=== PATIENT | male | born 2000 | race Caucasian/White ===

== ENCOUNTER 2020-05-27 13:24 | Emergency (ER) | payer BC ==
[2020-05-27] MEDS ORDERED: DIPHTH,PERTUSS(ACELL),TET 0.5 ML DISP.SYRIN IM ONE ×2 (13:44→14:13)
[2020-05-27 13:56] VITALS: BP 131/87; PULSE 94; TEMP 98.8; BMI 21.5
== END 2020-05-27 14:33 | disposition home or self-care (01) ==
LOC: FER 13:24
PROC: 3E0234Z Introduction of Serum, Toxoid and Vaccine into Muscle, Percutaneous Approach (ICD-10-PCS; principal; 2020-05-27)
DX: S51.852A Open bite of left forearm, initial encounter (principal); W54.0XXA Bitten by dog, initial encounter
CPT/HCPCS: 90715; 99284-25